=== PATIENT | female | born 1935 | race African-American/Black ===

== ENCOUNTER 2017-02-05 21:14 | Inpatient (IN) | payer MEDICARE, OTHER ==
[~2017-02-05] VITALS: Ht 167.6 cm; Wt 38.9 kg
[~2017-02-05 21:14] MED LIST: ACET325T14 PO; AMLO5TAB2 PO; AMLO5TAB4 PO; ASPI-496 PO; ASPI-621 PO; ASPI325T4 PO; ATOR40TA78 PO; BISA10SU54 PR; DIABETES MED; DOCU-30 PO; DOCU100C24 PO; FAMO20TA7 PO; FURO-92 PO; FURO-93 PO; GLYB5TAB3 PO; HEPA50004 SQ; HYDR-3343 PO; HYDR100T25 PO; INSU100I18 SQ-INSULIN; INSU100V5 SQ-INSULIN; ISOS30TA8 PO; LEVO750T26 PO; LISI-170 PO; LISI40TA PO; METO-93 PO; METO25TA91 PO; MULT-26; OXYB10TA PO; POLY17PO5 PO; POTA20TA14 PO; POTASSIUM; SIMV40TA3 PO; SPIR50TA PO; TOLT4CAP PO; TRAM-28 PO; lasix
[2017-02-05] MEDS ORDERED: HYDROmorphone 1 MG/ML, 1ML IVPush PRN (21:30)
[2017-02-05] MEDS ORDERED: ONDANSETRON 2MG/ML, 2ML ONE (21:38)
[2017-02-05] MEDS ORDERED: HYDROmorphone 1 MG/ML, 1ML ONE (21:38)
[2017-02-05 22:46] LABS: BLOOD UREA NITROGEN 44 mg/dL (7-18)
[2017-02-05] MEDS ORDERED: ONDANSETRON 2MG/ML, 2ML IVPush ONE (23:00)
[2017-02-05] MEDS ORDERED: SODIUM CHLORIDE 0.9% 1,000 ML IV ONE (23:33)
[2017-02-06] MEDS ORDERED: ONDANSETRON 2MG/ML, 2ML IVPush PRN
[2017-02-06] MEDS ORDERED: HYDROmorphone 1 MG/ML, 1ML IVPush PRN
[2017-02-06] MEDS ORDERED: LORA2TAB PO (00:05)
[2017-02-06] MEDS ORDERED: MORP30TA PO (00:05)
[2017-02-06] MEDS ORDERED: SODIUM CHLORIDE 0.9% 1,000 ML IV SCH (00:10)
[2017-02-06] MEDS ORDERED: ACETAMINOPHEN 325 MG TABLET PO PRN (00:30)
[2017-02-06] MEDS ORDERED: DOCUSATE 100 MG CAPSULE PO PRN (00:30)
[2017-02-06] MEDS ORDERED: POLYETHYLENE GLYCOL 17 GM PACKET PO PRN (00:30)
[2017-02-06] MEDS ORDERED: LORAZEPAM MC SCH (01:00)
[2017-02-06 01:24] VITALS: BP 160/84
[2017-02-06 02:30] VITALS: BP 160/84
[2017-02-06] MEDS: MORPHINE SULFATE 4 MG/ML, 1ML IVPush PRN ×4 (05:21→20:18)
[2017-02-06 07:11] VITALS: BP 178/77
[2017-02-06] MEDS: FUROSEMIDE 40 MG TABLET PO SCH ×2 (09:30→20:18)
[2017-02-06] MEDS: INSULIN REGULAR 100 UNITS/ML, 3ML VIAL SQ-INSULIN SCH ×4 (09:30→20:56)
[2017-02-06] MEDS: SENNA/DOCUSATE TABLET PO SCH (09:31)
[2017-02-06] MEDS: METOPROLOL SUCCINATE 50 MG TAB.ER.24H PO SCH ×2 (09:31→20:18)
[2017-02-06] MEDS: SPIRONOLACTONE 50 MG TABLET PO SCH (09:31)
[2017-02-06] MEDS: ISOSORBIDE MONONITRATE ER 60 MG TABLET PO SCH (09:31)
[2017-02-06] MEDS: ONDANSETRON 2MG/ML, 2ML IVP PRN ×2 (10:10→17:09)
[2017-02-06 15:05] VITALS: BP 160/79
[2017-02-06 19:59] VITALS: BP 191/71
[2017-02-07] MEDS: MORPHINE SULFATE 4 MG/ML, 1ML IVPush PRN ×5 (00:19→23:48)
[2017-02-07] MEDS ORDERED: ENALAPRILAT 1.25 MG/ML, 2ML IV PRN (00:30)
[2017-02-07 02:23] VITALS: BP 176/73
[2017-02-07 04:14] VITALS: BP 181/81
[2017-02-07 05:36] LABS: BLOOD UREA NITROGEN 37 mg/dL (7-18)
[2017-02-07] MEDS: INSULIN REGULAR 100 UNITS/ML, 3ML VIAL SQ-INSULIN SCH ×4 (07:00→23:28)
[2017-02-07 07:35] VITALS: BP 171/77
[2017-02-07] MEDS: SPIRONOLACTONE 50 MG TABLET PO SCH (09:00)
[2017-02-07] MEDS: FUROSEMIDE 40 MG TABLET PO SCH ×2 (09:00→23:26)
[2017-02-07] MEDS: SENNA/DOCUSATE TABLET PO SCH (09:00)
[2017-02-07] MEDS: ISOSORBIDE MONONITRATE ER 60 MG TABLET PO SCH (09:00)
[2017-02-07] MEDS: LISINOPRIL 10 MG TABLET PO SCH (09:00)
[2017-02-07] MEDS: METOPROLOL SUCCINATE 25 MG TAB.ER.24H PO SCH ×2 (09:20→23:27)
[2017-02-07 14:05] VITALS: BP 155/78
[2017-02-07] MEDS ORDERED: FENTANYL PF 100 MCG/2ML ONE (19:05)
[2017-02-07] MEDS ORDERED: KETAMINE 10 MG/ML, 20ML ONE (19:05)
[2017-02-07] MEDS ORDERED: CEFAZOLIN 1,000 MG ONE (19:07)
[2017-02-07] MEDS ORDERED: PROPOFOL 10 MG/ML, 20ML ONE (19:07)
[2017-02-07] MEDS ORDERED: LABETALOL 5MG/ML, 20ML ONE (19:07)
[2017-02-07] MEDS ORDERED: BUPIVACAINE/PF-EPI 0.5% 1:200K ONE (19:15)
[2017-02-07] MEDS ORDERED: BUPIVACAINE/PF-EPI 0.5% 1:200K IM ONE (19:36)
[2017-02-07] MEDS ORDERED: MORPHINE SULFATE 4 MG/ML, 1ML ONE (19:56)
[2017-02-07] MEDS: morphine SULFATE 10 MG/ML, 1ML IV PRN ×2 (20:00→20:15)
[2017-02-07 20:52] VITALS: BP 184/82
[2017-02-08 00:30] VITALS: BP 140/70
[2017-02-08] MEDS: CEFAZOLIN PMX 1GM/50ML 50 ML IV SCH ×2 (03:35→11:11)
[2017-02-08 03:36] VITALS: BP 153/68
[2017-02-08] MEDS: MORPHINE SULFATE 4 MG/ML, 1ML IVPush PRN (04:47)
[2017-02-08] MEDS: ENOXAPARIN 30 MG/0.3 ML SQ SCH (04:47)
[2017-02-08 07:04] VITALS: BP 128/47
[2017-02-08 07:58] VITALS: BP 161/76
[2017-02-08] MEDS: INSULIN REGULAR 100 UNITS/ML, 3ML VIAL SQ-INSULIN SCH ×4 (08:02→21:27)
[2017-02-08] MEDS: METOPROLOL SUCCINATE 25 MG TAB.ER.24H PO SCH ×2 (08:03→20:38)
[2017-02-08] MEDS: SPIRONOLACTONE 50 MG TABLET PO SCH (08:04)
[2017-02-08] MEDS: LISINOPRIL 10 MG TABLET PO SCH (08:04)
[2017-02-08] MEDS: FUROSEMIDE 40 MG TABLET PO SCH ×2 (08:04→20:38)
[2017-02-08] MEDS: SENNA/DOCUSATE TABLET PO SCH (08:04)
[2017-02-08] MEDS: ISOSORBIDE MONONITRATE ER 60 MG TABLET PO SCH (08:04)
[2017-02-08 10:15] LABS: BLOOD UREA NITROGEN 42 mg/dL (7-18)
[2017-02-08 13:00] VITALS: BP 159/75
[2017-02-08] MEDS: OXYcodone IR 5MG TABLET PO PRN (18:07)
[2017-02-08 19:04] VITALS: BP 173/68
[2017-02-09 00:20] VITALS: BP 139/73
[2017-02-09] MEDS: ENOXAPARIN 30 MG/0.3 ML SQ SCH (03:52)
[2017-02-09 07:33] VITALS: BP 153/88
[2017-02-09] MEDS: INSULIN REGULAR 100 UNITS/ML, 3ML VIAL SQ-INSULIN SCH ×4 (08:36→21:00)
[2017-02-09] MEDS: LISINOPRIL 10 MG TABLET PO SCH (08:37)
[2017-02-09] MEDS: SPIRONOLACTONE 50 MG TABLET PO SCH (08:37)
[2017-02-09] MEDS: METOPROLOL SUCCINATE 25 MG TAB.ER.24H PO SCH ×2 (08:37→22:00)
[2017-02-09] MEDS: SENNA/DOCUSATE TABLET PO SCH (08:38)
[2017-02-09] MEDS: ISOSORBIDE MONONITRATE ER 60 MG TABLET PO SCH (08:38)
[2017-02-09 13:55] VITALS: BP 146/64
[2017-02-09] MEDS: OXYcodone IR 5MG TABLET PO PRN (18:57)
[2017-02-09 20:04] VITALS: BP 141/67
[2017-02-10 03:50] VITALS: BP 139/75
[2017-02-10] MEDS: ENOXAPARIN 30 MG/0.3 ML SQ SCH (03:54)
[2017-02-10 07:10] VITALS: BP 165/71
[2017-02-10] MEDS: SPIRONOLACTONE 50 MG TABLET PO SCH (09:47)
[2017-02-10] MEDS: METOPROLOL SUCCINATE 25 MG TAB.ER.24H PO SCH (09:47)
[2017-02-10] MEDS: LISINOPRIL 10 MG TABLET PO SCH (09:47)
[2017-02-10] MEDS: INSULIN REGULAR 100 UNITS/ML, 3ML VIAL SQ-INSULIN SCH ×2 (09:47→12:49)
[2017-02-10] MEDS: ISOSORBIDE MONONITRATE ER 60 MG TABLET PO SCH (09:47)
[2017-02-10] MEDS: SENNA/DOCUSATE TABLET PO SCH (09:47)
[2017-02-10] MEDS: FUROSEMIDE 40 MG TABLET PO SCH (14:02)
== END 2017-02-10 14:08 | DRG 480 ==
LOC: 4NOR 23:33 → SUATTDRO 23:48 → ED 23:58
PROVIDERS: ADMIT Family Medicine; ATTEND Family Medicine
PROC: 0QS636Z Reposition Right Upper Femur with Intramedullary Internal Fixation Device, Percutaneous Approach (ICD-10-PCS; principal; 2017-02-07 19:00)
DX: S72.141A Displaced intertrochanteric fracture of right femur, initial encounter for closed fracture (principal); N17.0 Acute kidney failure with tubular necrosis; I50.42 Chronic combined systolic (congestive) and diastolic (congestive) heart failure; I13.0 Hypertensive heart and chronic kidney disease with heart failure and stage 1 through stage 4 chronic kidney disease, or unspecified chronic kidney disease; E11.22 Type 2 diabetes mellitus with diabetic chronic kidney disease; E78.5 Hyperlipidemia, unspecified; I25.10 Atherosclerotic heart disease of native coronary artery without angina pectoris; I35.0 Nonrheumatic aortic (valve) stenosis; J44.9 Chronic obstructive pulmonary disease, unspecified; N18.3 Chronic kidney disease, stage 3 (moderate); R32 Unspecified urinary incontinence; Z66 Do not resuscitate; L29.9 Pruritus, unspecified; W01.0XXA Fall on same level from slipping, tripping and stumbling without subsequent striking against object, initial encounter; Z79.82 Long term (current) use of aspirin; Z83.3 Family history of diabetes mellitus; Z87.01 Personal history of pneumonia (recurrent); I25.2 Old myocardial infarction; Y93.89 Activity, other specified; Y92.89 Other specified places as the place of occurrence of the external cause; Z90.710 Acquired absence of both cervix and uterus; Z79.899 Other long term (current) drug therapy
CPT/HCPCS: 36415; 76000; 80048; 82040; 82962; 85025; 93005; 96374; 96375; C1713; J0690; J1170; J1650; J1815; J2405; J2704; J3010; J2270; J7030